=== PATIENT | female | born 1960 | race Caucasian/White ===

== ENCOUNTER 2021-02-10 08:20 | Inpatient (IN) | payer OTHER ==
[~2021-02-10] VITALS: Ht 160 cm; Wt 66.2 kg
[2021-02-10] VITALS (32 sets, daily range): BP systolic 76–144; BP diastolic 36–83
[~2021-02-10 08:20] MED LIST: ACETAMINOPHEN325 M1 PO; CIPROFLOXACIN500 M1 PO; DIOVAN; DIOVAN HCT 1601 EACH PO; FLAGYL500 MG PO; PROTONIX40 M2 PO; SINGULAIR
[2021-02-10] MEDS ORDERED: METFORMIN HCL500 M3 PO (08:29)
[2021-02-10] MEDS ORDERED: ZOFRAN ODT4 MG PO (08:30)
[2021-02-10 08:39] LABS: HEMOGLOBIN 14.7 gm/dL (12.0-15.0); MCH 29.6 pg (26.0-34.0); MCHC 34.3 g/dL (28.0-37.0); MCV 86.3 fL (80.0-100.0); MPV 8.1 fl. (7.2-11.1); NUCLEATED RBCS 0 /100WBC; PLATELET COUNT* 427 thou/uL (150-400); RBC 4.98 mil/uL (4.20-5.00); RDW-CV 13.5 % (10.5-14.5); WBC 18.5 thou/uL (4.0-11.0)
[2021-02-10 08:48] LABS: CALCIUM 9.7 mg/dL (8.5-10.1)
[2021-02-10 08:49] LABS: POTASSIUM 2.4 mmol/L (3.5-5.1)
[2021-02-10 08:53] LABS: TOTAL BILIRUBIN 0.9 mg/dL (<0.1-1.0); TOTAL PROTEIN 8.4 g/dL (6.4-8.2)
[2021-02-10 08:57] LABS: URINE BILIRUBIN NEGATIVE (Negative); URINE BLOOD TRACE (Negative); URINE CLARITY CLEAR; URINE COLOR YELLOW; URINE GLUCOSE-RANDOM 2+ (Negative); URINE LEUKOCYTES-REFLEX NEGATIVE (Negative); URINE NITRITE-REFLEX NEGATIVE (Negative); URINE PROTEIN 2+ (Negative); URINE SPECIFIC GRAVITY 1.025 (1.005-1.030); URINE UROBILINOGEN 0.2 E.U./dl (0.2-1.0)
[2021-02-10 08:58] LABS: URINE KETONES 3+ (Negative)
[2021-02-10 09:02] LABS: ABSOLUTE LYMPHOCYTES 0.6 thou/uL (0.8-5.3); ABSOLUTE MONOCYTES 0.7 thou/uL (0.0-1.2); ABSOLUTE NEUTROPHILS 17.2 thou/uL (1.6-8.1); PLATELET ESTIMATE INCREASED
[2021-02-10 09:03] LABS: SQUAMOUS >10 Many /LPF (0-3)
[2021-02-10 09:04] LABS: MUCUS 0-3 Light strn/LPF (None Seen)
[2021-02-10 09:05] LABS: BACTERIA-REFLEX None Seen /HPF (None Seen); CASTS None Seen /LPF (None Seen); CRYSTALS None Seen /LPF (None Seen); URINE RBC 0-2 Rare /HPF (0-2); URINE WBC-REFLEX 0-5 Rare /HPF (0-5)
[2021-02-10 09:15] LABS: APTT 26.2 Seconds (25.0-31.3); INR 1.1; PROTIME 11.9 Seconds (9.20-11.50)
--- NOTE | 2021-02-10 11:53 | CARD ---
[address] [address] CARDIAC CATH REPORT Name: GORDON MALONEY Room: [address] M.R.#: [id number] Admission: 02/10/21 Attend Phys: Mik Merida MD, Discharge: Date of : 58 Report #: [id number] THIS REPORT FOR: cc: Román Harley Bruce R. DO ~ Mik Merida MD [facility] APPROVED REPORT Study performed: 02/10/2021 09:33:54 Patient Details Patient Status: ED Room #: The patient is a 60 year-old female Event Personnel Mik Merida Senior Portfolio Manager, Samantha Younger RN, Joby Neely ESTIMATOR LUMBER Scrub, Karly Gomes RTR Monitor, Chente Diehl Screen Printing Supervisor Procedures Performed Art Access - R femoral artery Left Heart Cath w/or w/o Coronaries MYCHAL Revasc AMI Total/Sub Single RCA Hemostasis w/ Angioseal Indication STEMI Risk Factors Hypercholesterolemia, Diabetes Admission/Lab Medications/Medications given during procedure Lidocaine Subcut 14 ml, Oxygen Nasal cannula 2 l per min, 0.9% Sodium Chloride IV 75 ml per hr, Fentanyl IV 25 mcg, Midazolam (Versed) IV 1 mg, Angiomax IV 10.5 ml, Angiomax Drip IV 23.22 ml per hr, Effient PO 60 mg Procedure Narrative The patient was brought emergently to the Cardiac Catheterization Laboratory and was prepped and draped in a sterile manner. The right femoral was infiltrated with 2% Lidocaine subcutaneous anesthesia. IV conscious sedation was used throughout procedure with appropriate monitoring and was performed in the presence of a registered nurse who was an independent [place] [address] CARDIAC CATH REPORT Name: GORDON MALONEY Room: [address]#: [id number] Admission: 02/10/21 Attend Phys: Mik Merida MD, Discharge: Date of : 58 Report #: [id number] performing the procedure. A [place] 6 FR sheath was inserted into the right femoral artery. Coronary angiography was performed using coronary diagnostic catheters. The right coronary system was accessed and visualized with a Diagnostic 6 Fr JR 4 catheter. The left coronary system was accessed and visualized with a Diagnostic 6 Fr JL 4 catheter. The left ventricle was accessed and visualized with a Diagnostic 6 Fr Pigtail catheter. Left ventricular/Aortic Valve gradient assessed via catheter pullback. Left ventriculogram was performed in WANG projection. Pre-demployment femoral angiogram was performed . Closure device was deployed with a Fr Angioseal STS 6Fr. The patient tolerated the procedure well and there were no complications associated with the procedure. There was no hematoma. Intraoperative Conscious Sedation Sedation start time: 09:53 Case end Time: 10:25 Fentanyl 25 mcg Versed 1 mg Fluoro Time: 13.0 minutes Dose: DAP 81948 cGycm2 1441 mGy Contrast Type and Amount: Visipaque 225 ml Diagnostic Cath Left Main 0% narrowing LAD Tandem 40 and 80% mid LAD stenoses Circumflex 30% proximal narrowing Right Coronary Large dominant vessel with 40% proximal narrowing with 95% distal stenosis with prominent intraluminal thrombus associated with the distal stenosis Left Ventriculography The left ventricle is normal in size with normal contractility. The left ventricular ejection fraction is estimated to be 60%. Left ventricular wall motion abnormalities are present. There is no mitral insufficiency. Mild inferobasilar hypokinesis is noted Hemodynamics The aortic pressure is 141/78 mmHg with a mean of 86 mmHg. The left ventricular pressure is 144/8 mmHg with a mean of mmHg. The left ventricular end diastolic pressure is 25 mmHg. There was no gradient across the aortic valve upon pullback[place] [address] CARDIAC CATH REPORT Name: GORDON MALONEY Room: [address]#: [id number] Admission: 02/10/21 Attend Phys: Mik Merida MD, Discharge: Date of : 58 Report #: [id number] Anticoagulation was achieved with Angiomax Drip. Patient was preloaded with Angiomax IV 10.5 ml. Percutaneous coronary intervention was performed on the distal right coronary artery. The lesion stenosis prior to intervention was 95% with KARELY flow. A 6F JR 4.0 Guide Catheter was used to engage the right ostium. A IG: BMW 190cm Interventional Guidewire was used to cross the lesion. BALLOON DILATION A Balloon catheter Mini Trek RX 2.0 X 12 was inserted and inflated up to 8.00atm for 7seconds. Additional Inflation: 8.00atm for 7seconds. A balloon catheter EA Trek RX 3.0 x 12 was inserted and inflated up to 12 HERMELINDA for 13 seconds and 16 HERMELINDA for 9 seconds. STENT DEPLOYMENT A drug-eluting stent [place] RX Stent 3.5X15mm was inserted and inflated up to 12.00atm for 10seconds. Additional Inflation: 18.00atm for 9seconds. Additional Inflation: 21.00atm for 9seconds. Final angiography reveals 0 % stenosis with KARELY 3 flow. COMMENTS There was no residual thrombus noted post stent deployment in the distal right coronary artery. Conclusion 1. Acute inferior wall ST segment elevation myocardial infarction 2. Significant coronary artery disease characterized by the following: A 40% proximal with 95% distal right coronary stenosis with prominent thrombus associated with the distal lesion B tandem 40 and 80% mid LAD stenoses C 30% narrowing in the proximal portion of the nondominant circumflex 2. Moderately severe elevation of left ventricular end-diastolic pressure at rest 3. Normal global left ventricular systolic function, estimated ejection fraction being 60% with subtle [place] [address] CARDIAC CATH REPORT Name: GORDON MALONEY Room: [address]#: [id number] Admission: 02/10/21 Attend Phys: Mik Merida MD, Discharge: Date of : 58 Report #: [id number] noted 4. Successful PCI with deployment of a drug-eluting stent at the site of 95% distal right coronary stenosis with 0% residual narrowing status post stent deployment with KARELY-3 flow to the distal vessel and no residual thrombus. Recommendations Cardiac Risk Reduction Program Aggressive Medical Therapy Medications Administered Prasugrel Diagnostic Cath Approved by: Chente Diehl MD Date/Time: 02/10/2021 11:50:55 <ELECTRONICALLY SIGNED> By: Mik Merida MD, FAC 02/10/21 1153 115 1153Mik Merida MD, FACC /INF
[2021-02-10 15:24] LABS: CALCIUM 9.9 mg/dL (8.5-10.1); CK-MB MASS 28.8 ng/mL (<0.5-3.6); CREATININE 0.8 mg/dL (0.6-1.3); PHOSPHORUS* 2.6 mg/dL (2.5-4.9)
[2021-02-10 15:28] LABS: POTASSIUM 2.3 mmol/L (3.5-5.1)
[2021-02-10 15:29] LABS: TROPONIN-I LEVEL 14.03 ng/mL (<0.06)
[2021-02-11] VITALS (19 sets, daily range): BP systolic 91–137; BP diastolic 57–94
[2021-02-11 01:24] LABS: HEMATOCRIT 38.7 % (37.0-47.0); HEMOGLOBIN 13.2 gm/dL (12.0-15.0); MCH 29.9 pg (26.0-34.0); MCHC 34.2 g/dL (28.0-37.0); MCV 87.6 fL (80.0-100.0); MPV 8.1 fl. (7.2-11.1); RBC 4.42 mil/uL (4.20-5.00); RDW-CV 13.1 % (10.5-14.5); WBC 14.7 thou/uL (4.0-11.0)
[2021-02-11 01:43] LABS: ALBUMIN 3.2 g/dL (3.4-5.0); ALKALINE PHOSPHATASE 95 U/L (46-116); ANION GAP 9 mmol/L (7-16); BUN 11 mg/dL (7-18); CALCIUM 9.2 mg/dL (8.5-10.1); CHLORIDE 105 mmol/L (98-107); CHOLESTEROL 191 mg/dL (<200); CK-MB MASS 11.1 ng/mL (<0.5-3.6); CO2 28 mmol/L (21-32); CREATININE 0.6 mg/dL (0.6-1.3); GLUCOSE 146 mg/dL (70-99); HDL CHOLESTEROL 28 mg/dL (>40); LDL CHOLESTEROL 129 mg/dL (<100); POTASSIUM 3.1 mmol/L (3.5-5.1); SGOT 75 U/L (15-37); SGPT 11 U/L (30-65); SODIUM 142 mmol/L (136-145); TC:HDL 6.8 Ratio (Not establshd); TOTAL BILIRUBIN 0.7 mg/dL (<0.1-1.0); TOTAL PROTEIN 6.9 g/dL (6.4-8.2); TRIGLYCERIDE 173 mg/dL (<150); VLDL 35 mg/dL (<40)
[2021-02-11 01:56] LABS: SERUM ASSESSMENT Clear; TROPONIN-I LEVEL 16.64 ng/mL (<0.06)
--- NOTE | 2021-02-11 10:38 | CON ---
[facility] [address] [facility] [address] CONSULTATION Name: GORDON MALONEY Room: [address] ADM IN M.R.#: [id number] Admission: 02/10/21 Attend Phys: Aleah Rogers Discharge: Date of : 58 Report #: [id number] THIS REPORT FOR: cc: Román Harley Bruce R. DO ~ Chente Diehl MD [facility] CONSULTATION INDICATION: ST-elevation myocardial infarction. HISTORY OF PRESENT ILLNESS: The patient is a 60-year-old white female who presented to the Emergency Room initially with complaints of abdominal pain, nausea and vomiting. The patient had some abdominal tenderness, but no rebound. She reports having recent lumbar fusion. She states she has had nausea and vomiting for the past 3 days. During her stay initially, she denied chest pain. She did report a little later that she was having some shoulder pain. EKG at that time showed ST elevation in the inferior leads. Initial troponin is 6. The patient is having intermittent shoulder pain. She reports this retrospectively off and on as well. PAST MEDICAL HISTORY: 1. Type 2 diabetes mellitus. 2. Hypertension. 3. Hyperlipidemia. 4. History of laminectomy. 5. Back fusion. 6. Tonsillectomy. 7. . CURRENT MEDICATIONS: Metformin one tablet b.i.d., Tylenol p.r.n., Zofran p.r.n. ALLERGIES: None documented. SOCIAL HISTORY: The patient is . She does not drink alcohol. She does not smoke. Her is here in attendance with her. REVIEW OF SYSTEMS: A 14-point review of systems as per HPI, otherwise unremarkable. PHYSICAL EXAMINATION: VITAL SIGNS: Stable. Blood pressure 134/73, pulse is 98 and regular. GENERAL: This is an elderly female, in no distress. Mood and affect appropriate. HEENT: Extraocular muscles intact. Mucous membranes are moist. NECK: Shows no jugular venous distention. [place] [address] CONSULTATION Name: GORDON MALONEY Room: [address] IN [facility].#: [id number] Admission: 02/10/21 Attend Phys: Aleah Rogers Discharge: Date of : 58 Report #: [id number] CHEST: Reveals clear lung baron without wheezes, rales or rhonchi. CARDIOVASCULAR: Reveals regular rhythm with normal S1, S2. I do not appreciate gallop or murmur. ABDOMEN: Reveals some mild tenderness with positive bowel sounds. EXTREMITIES: Shows no edema. SKIN: Dry. LABORATORY DATA: Labs are reviewed. Sodium 140, potassium 2.4, chloride 99, bicarbonate 27, BUN 14, creatinine 1.0. Serum glucose 287. AST 79. Amylase 35, lipase 77. Total bilirubin 0.9, direct bilirubin 0.1, calcium 9.7, magnesium 1.7, alkaline phosphatase 119, ALT 25, total protein 8.4, albumin 4.0, EGFR 56. Troponin 10.05. Coags within normal limits. White blood cell count 18.5, hemoglobin 14.7, platelet count 427,000. Chest x-ray shows no acute process. IMPRESSION AND RECOMMENDATIONS: 1. Acute inferior wall ST-elevation myocardial infarction based on EKG. We will proceed to catheterization lab for intervention/angiography. 2. Hypertension. Blood pressure adequately controlled at present. We will adjust medications as needed. 3. Probable dyslipidemia. We will recommend a statin agent. 4. Diabetes per hospitalist. 5. Hypokalemia. We will correct. <ELECTRONICALLY SIGNED> By: Chente Diehl MD, FACC 02/11/21 1038 0946 1002[facility] Jessica Diehl MD, FACC /nt
[2021-02-11 12:32] LABS: CK-MB MASS 4.3 ng/mL (<0.5-3.6)
[2021-02-11 12:33] LABS: TROPONIN-I LEVEL 8.78 ng/mL (<0.06)
--- NOTE | 2021-02-11 13:55 | EKG ---
[place] [address] ELECTROCARDIOGRAM REPORT Name: GORDON MALONEY Room: [address] ADM IN M.R.#: [id number] Admission: 02/10/21 Attend Phys: Jose Lombardo Discharge: Date of : 58 Date of Service: 02/11/21 0517 Report #: [id number] THIS REPORT FOR: //name// [facility] Test Date: 2021-02-11 Test Time: 05:17:20 Pat Name: GORDON MALONEY Department: Room: [facility] Gender: F Director Of Rehabilitation And Wellness: CHRISTINE : 1960 Requested By: Mik Merida Order Number: [id number] Reading MD: Chente Diehl Measurements Intervals [place] Rate: 90 P: 52 KS: 142 QRS: 51 QRSD: 92 T: -29 QT: 393 QTc: 481 Interpretive Statements Sinus rhythm Borderline repolarization abnormality Minimal ST elevation, inferior leads Baseline wander in lead(s) II,III,aVF No previous ECG available for comparison Electronically Signed On 02-11-2021 13:55:21 CDT by Chente Diehl [email or web address] <ELECTRONICALLY SIGNED> By: Chente Diehl MD, FACC 02/11/21 1355 0517 0517 Chente Diehl MD, [facility] /EPI
[2021-02-12 00:36] VITALS: BP 102/63
[2021-02-12 03:05] LABS: GLYCOHEMOGLOBIN (HGB A1C) 7.2 % (4.8-5.6)
[2021-02-12 04:17] VITALS: BP 107/65
[2021-02-12 05:52] LABS: TROPONIN-I LEVEL 6.87 ng/mL (<0.06)
[2021-02-12] MEDS ORDERED: NITROGLYCERIN0.4 MG SUBLING ×2 (09:23→10:27)
[2021-02-12] MEDS ORDERED: COZAAR 50 MG TA50 M1 PO ×2 (09:23→10:27)
[2021-02-12] MEDS ORDERED: EFFIENT10 MG PO ×2 (09:23→10:26)
[2021-02-12] MEDS ORDERED: HYDROCHLOROTHIA25 M1 PO ×2 (09:23→10:27)
[2021-02-12] MEDS ORDERED: METOPROLOL TART25 MG PO ×2 (09:23→10:27)
[2021-02-12] MEDS ORDERED: LIPITOR40 MG PO ×2 (09:23→10:27)
[2021-02-12] MEDS ORDERED: BAYER CHEWABLE81 MG PO (09:23)
[2021-02-12] MEDS ORDERED: FENOFIBRATE160 MG PO ×2 (09:23→10:27)
--- NOTE | 2021-02-12 09:35 | EKG ---
[place] [address] ELECTROCARDIOGRAM REPORT Name: MET HAIDERSHOSHANA Selwyn Room: [address] ADM IN .R.#: [id number] Admission: 02/10/21 Attend Phys: Jose Lombardo Discharge: Date of : 58 Date of Service: 02/10/2140 Report #: [id number] THIS REPORT FOR: //name// [facility] ED Test Date: 2021-02-10 Test Time: 08:40:08 Pat Name: GORDON MALONEY Department: Room: [facility] Gender: F Exterminator Helper Termite: CCD : 1960 Requested By: Severiano Bell Order Number: [id number] MD: Nathaniel Lopez Measurements Intervals [place] Rate: 92 P: 60 UT: 149 QRS: 36 QRSD: 92 T: 49 QT: 403 QTc: 499 Interpretive Statements Sinus rhythm Inferoposterior infarct, recent No previous ECG available for comparison Electronically Signed On 02-12-2021 9:35:36 CDT by Nathaniel Lopez [email or web address] <ELECTRONICALLY SIGNED> By: Nathaniel Lopez MD, [facility] 02/12/21 0935 9 9 Nathaniel Lopez MD, [facility] /EPI
[2021-02-12 11:39] VITALS: BP 127/81
--- NOTE | 2021-02-12 12:21 | EKG ---
[place] [address] ELECTROCARDIOGRAM REPORT Name: GORDON MALONEY Room: [address] ADM IN .R.#: [id number] Admission: 02/10/21 Attend Phys: Jose Lombardo Discharge: Date of : 58 Date of Service: 02/10/21 1507 Report #: [id number] THIS REPORT FOR: //name// [facility] Test Date: 2021-02-10 Test Time: 15:07:43 Pat Name: GORDON MALONEY Department: Room: [facility] Gender: F Chaser Helper: HELENA : 1960 Requested By: Mik Merida Order Number: [id number] Lionel MD: Nathaniel Lopez Measurements Intervals [place] Rate: 102 P: 55 MT: 152 QRS: 54 QRSD: 87 T: -8 QT: 355 QTc: 463 Interpretive Statements Sinus tachycardia Probable left atrial enlargement Probable inferior infarct, recent Compared to ECG 02/10/2021 08:40:08 Sinus rhythm no longer present Myocardial infarct finding still present Electronically Signed On 02-12-2021 12:21:11 CDT by Nathaniel Lopez [email or web address] <ELECTRONICALLY SIGNED> By: Nathaniel Lopez MD, FAC 02/12/21 1221 1507 1507 Nathaniel Lopez MD, [facility] /EPI
[2021-02-12 14:24] VITALS: BP 127/81
--- NOTE | 2021-02-12 17:00 | 2DMMODE ---
[place] [address] 2 D/M-MODE ECHOCARDIOGRAM Name: GORDON MALONEY Room: [address] IN [facility].#: [id number] Admission: 02/10/21 Attend Phys: Jose Lombardo Discharge: 02/12/21 Date of : 58 Date of Service: 02/12/21 1700 Report #: [id number] THIS REPORT FOR: cc: Román Harley,Román Miranda,Nathaniel Pierre MD [facility] ~ APPROVED REPORT Study performed: 02/12/2021 14:20:45 EXAM: Comprehensive 2D, Doppler, and color-flow Echocardiogram Patient Location: In-Patient Room #: 223 BSA: 1.69 HR: 80 bpm BP: 127/81 mmHg Other Information Study Quality: Good Indications SC 2D Dimensions IVSd: 10.57 (7-11mm) LVOT Diam: 20.29 (18-24mm) LVDd: 45.10 mm PWd: 11.48 (7-11mm) Ascending Ao: 35.20 (22-36mm) LVDs: 21.43 (25-40mm) Aortic Root: 29.05 mm Volumes Left Atrial Volume (Systole) LA ESV Index: 20.20 mL/m2 Aortic Valve AoV Peak Zaheer.: 1.11 m/s AO Peak Gr.: 4.95 mmHg LVOT Max P.90 mmHg AO Mean Gr.: 2.95 mmHg LVOT Mean P.80 mmHg LVOT Max V: 0.99 m/s AO V2 VTI: 19.78 cm LVOT Mean V: 0.60 m/s SABRINA (VTI): 2.94 cm2 LVOT V1 VTI: 18.02 [place] [address] 2 D/M-MODE ECHOCARDIOGRAM Name: GORDON MALONEY Room: [address]R.#: [id number] Admission: 02/10/21 Attend Phys: Jose Lombardo Discharge: 02/12/21 Date of : 58 Date of Service: 02/12/21 1700 Report #: [id number] E/A Ratio: 0.83 MV Decel. Time: 192.69 ms MV E Max Zaheer.: 0.99 m/s MV PHT: 55.88 ms MVA (PHT): 3.94 cm2 TDI E/Lateral E': 11.00 E/Medial E': 16.50 Medial E' Zaheer.: 0.06 m/s Lateral E' Zaheer.: 0.09 m/s Pulmonary Valve PV Peak Zaheer.: 0.91 m/s PV Peak Gr.: 3.33 mmHg Left Ventricle The left ventricle is normal size. There is normal LV segmental wall motion. There is normal left ventricular wall thickness. Left ventricular systolic function is normal. The left ventricular ejection fraction is within the normal range. LVEF is 50-55%. Grade I - abnormal relaxation pattern. Right Ventricle The right ventricle is normal size. The right ventricular systolic function is normal. Atria The left atrium size is normal. The right atrium size is normal. Aortic Valve The aortic valve is normal in structure. Mild aortic regurgitation. There is no aortic valvular stenosis. Mitral Valve Mild mitral annular calcification. moderate mitral regurgitation. No evidence of mitral valve stenosis. Tricuspid Valve The tricuspid valve is normal in structure. There is trace tricuspid valve regurgitation noted. Pulmonic Valve The pulmonary valve is normal in structure. There is no pulmonic valvular regurgitation. [place] [address] 2 D/M-MODE ECHOCARDIOGRAM Name: MALONEYMETSHOSHANA Samano Room: [address]#: [id number] Admission: 02/10/21 Attend Phys: Jose Lombardo Discharge: 02/12/21 Date of : 58 Date of Service: 02/12/21 1700 Report #: [id number] The aortic root is normal in size. IVC is normal in size and collapses >50% with inspiration. Pericardium There is no pericardial effusion. <Conclusion> LVEF is 50-55%. Mild aortic regurgitation. moderate mitral regurgitation. <ELECTRONICALLY SIGNED> By: Nathaniel Lopez MD, FACC 02/12/211699 99 99 Nathaniel Lopez MD, FACC /INF
== END 2021-02-12 16:13 | disposition home or self-care (01) | DRG 246 ==
LOC: M.ERS 08:20 → M.CL 09:36 → M.TBA-CV 09:36 → M.ERS 09:36 → M.2W 11:21 → M.ICU 11:21 → M.TBA-ER 11:21 → M.ICU 12:29 → M.2W 02-11 18:39
PROVIDERS: Emergency Medicine Emergency Medical Services; Internal Medicine; Internal Medicine Cardiovascular Disease; ADMIT Internal Medicine; ATTEND Internal Medicine
PROC: 027034Z Dilation of Coronary Artery, One Artery with Drug-eluting Intraluminal Device, Percutaneous Approach (ICD-10-PCS; principal; 2021-02-10)
PROC: B215YZZ Fluoroscopy of Left Heart using Other Contrast (ICD-10-PCS; principal; 2021-02-10)
PROC: 4A023N7 Measurement of Cardiac Sampling and Pressure, Left Heart, Percutaneous Approach (ICD-10-PCS; principal; 2021-02-10)
PROC: B211YZZ Fluoroscopy of Multiple Coronary Arteries using Other Contrast (ICD-10-PCS; principal; 2021-02-10)
DX: I21.19 ST elevation (STEMI) myocardial infarction involving other coronary artery of inferior wall (principal); I50.33 Acute on chronic diastolic (congestive) heart failure; E87.6 Hypokalemia; K59.00 Constipation, unspecified; E11.65 Type 2 diabetes mellitus with hyperglycemia; D72.829 Elevated white blood cell count, unspecified; R82.4 Acetonuria; E78.5 Hyperlipidemia, unspecified; G89.29 Other chronic pain; I25.10 Atherosclerotic heart disease of native coronary artery without angina pectoris; I11.0 Hypertensive heart disease with heart failure; M54.9 Dorsalgia, unspecified; Z20.822 Contact with and (suspected) exposure to COVID-19; Z98.891 History of uterine scar from previous surgery; Z98.1 Arthrodesis status; Z90.710 Acquired absence of both cervix and uterus; Z79.84 Long term (current) use of oral hypoglycemic drugs; Z79.899 Other long term (current) drug therapy

== ENCOUNTER 2021-02-20 10:26 | Observation (INO) | payer OTHER ==
[2021-02-20] VITALS (12 sets, daily range): BP systolic 125–152; BP diastolic 76–83
[~2021-02-20] VITALS: Ht 160 cm; Wt 64.9 kg
[~2021-02-20 10:26] MED LIST changes: +BAYER CHEWABLE81 MG PO; +COZAAR 50 MG TA50 M1 PO; +EFFIENT10 MG PO; +FENOFIBRATE160 MG PO; +HYDROCHLOROTHIA25 M1 PO; +LIPITOR40 MG PO; +METFORMIN HCL500 M3 PO; +METOPROLOL TART25 MG PO; +NITROGLYCERIN0.4 MG SUBLING; +ZOFRAN ODT4 MG PO
[2021-02-20 11:27] LABS: HEMATOCRIT 38.9 % (37.0-47.0); HEMOGLOBIN 13.1 gm/dL (12.0-15.0); MCH 29.6 pg (26.0-34.0); MCHC 33.7 g/dL (28.0-37.0); MCV 87.9 fL (80.0-100.0); MPV 8.2 fl. (7.2-11.1); RBC 4.43 mil/uL (4.20-5.00); RDW-CV 13.1 % (10.5-14.5); WBC 11.2 thou/uL (4.0-11.0)
[2021-02-20 11:35] LABS: ANION GAP 11 mmol/L (7-16); BUN 16 mg/dL (7-18); CALCIUM 9.2 mg/dL (8.5-10.1); CHLORIDE 104 mmol/L (98-107); CO2 26 mmol/L (21-32); CREATININE 0.7 mg/dL (0.6-1.3); GLUCOSE 137 mg/dL (70-99); POTASSIUM 3.2 mmol/L (3.5-5.1); SODIUM 141 mmol/L (136-145)
[2021-02-20 11:37] LABS: APTT 26.1 Seconds (25.0-31.3); INR 1.1; PROTIME 11.3 Seconds (9.20-11.50)
[2021-02-20 11:39] LABS: ALBUMIN 3.5 g/dL (3.4-5.0); ALKALINE PHOSPHATASE 85 U/L (46-116); CHOLESTEROL 115 mg/dL (<200); HDL CHOLESTEROL 31 mg/dL (>40); LDL CHOLESTEROL 59 mg/dL (<100); SGOT 12 U/L (15-37); SGPT 21 U/L (30-65); TC:HDL 3.7 Ratio (Not establshd); TOTAL BILIRUBIN 0.5 mg/dL (<0.1-1.0); TOTAL PROTEIN 7.5 g/dL (6.4-8.2); TRIGLYCERIDE 126 mg/dL (<150); VLDL 25 mg/dL (<40)
[2021-02-20 11:40] LABS: SERUM ASSESSMENT Clear
--- NOTE | 2021-02-20 14:06 | EKG ---
[place] [address] ELECTROCARDIOGRAM REPORT Name: GORDON MALONEY Room: [address] M.R.#: [id number] Admission: 02/20/21 Attend Phys: Chente Diehl, Discharge: Date of : 58 Date of Service: 02/20/21 1137 Report #: [id number] THIS REPORT FOR: //name// [facility] Test Date: 2021-02-20 Test Time: 11:37:15 Pat Name: GORDON MALONEY Department: Room: [facility] Gender: F Stock Control Supervisor: DARWIN : 1960 Requested By: Chente Diehl Order Number: [id number] Reading MD: Chente Diehl Measurements Intervals [place] Rate: 70 P: 29 CO: 155 QRS: 12 QRSD: 86 T: -15 QT: 420 QTc: 454 Interpretive Statements Sinus rhythm Borderline T abnormalities, inferior leads Compared to ECG 02/11/2021 05:17:20 T-wave abnormality now present ST (T wave) deviation no longer present Electronically Signed On 02-20-2021 14:06:49 CDT by Chente Diehl [email or web address] <ELECTRONICALLY SIGNED> By: Chente Diehl MD, FACC 02/20/21 1406 1137 1137 Chente Diehl MD, [facility] /EPI
--- NOTE | 2021-02-20 14:53 | CARD ---
[address] [address] CARDIAC CATH REPORT Name: GORDON MALONEY Room: [address] Darrell Rodriguez#: [id number] Admission: 02/20/21 Attend Phys: Chente Diehl MD Discharge: Date of : 58 Report #: [id number] THIS REPORT FOR: cc: Román Dunbar MD, Bruce D. MD Holkins, John M. MD [facility] ~ APPROVED REPORT Study performed: 02/20/2021 12:36:54 Patient Details The patient is a 60 year-old female Event Personnel Chente Diehl Roll Slicing Machine Tender, Katie Lawrence RN RN, Ra Larkin GLASS INSTALLER TECHNICIAN Monitor, Karly Gomes RTR ScrubMagnolia John Framing Specialist Procedures Performed Left heart catheterization selective coronary arteriography and PCI with deployment of a drug-eluting stent at site of 75% tubular proximalmid LAD stenosis Indication Unstable angina Risk Factors Hypercholesterolemia, Hypertension Previous Procedures/Diagnoses Previous PCI, Previous NC Admission/Lab Medications/Medications given during procedure Angiomax bolus and infusion Procedure Narrative The patient was brought electively to the Cardiac Catheterization Laboratory and was prepped and draped in a sterile manner. The right femoral was infiltrated with 2% Lidocaine subcutaneous anesthesia. A [place] 6 FR sheath was inserted into the . Coronary angiography was performed using coronary diagnostic catheters. The right coronary system was accessed and visualized with a Diagnostic - JR4 catheter. The left coronary system was accessed and visualized with a 6F XBLAD 3.5 catheter. The left ventricle was accessed and visualized with a [facility] [address] [place] [address] CARDIAC CATH REPORT Name: GORDON MALONEY Room: [address] Michael#: [id number] Admission: 02/20/21 Attend Phys: Chente Diehl MD Discharge: Date of : 58 Report #: [id number] Diagnostic - JR4 Pressures Only catheter. Left ventricular/Aortic Valve gradient assessed via catheter pullback. Pre-demployment femoral angiogram was performed . Closure device was deployed with a Fr Angioseal STS 6Fr. The patient tolerated the procedure well and there were no complications associated with the procedure. There was no hematoma. Intraoperative Conscious Sedation Sedation start time: 1254 Case end Time: 1325 Fentanyl 25 mcg Versed 1 mg Fluoro Time: 8.0 minutes Dose: DAP 84384 cGycm2 1012 mGy Contrast Type and Amount: Omnipaque 170 ml Diagnostic Cath Left Main 0% narrowing LAD 75% tubular irregular proximalmid LAD stenosis Circumflex 30% narrowing the proximal portion of this nondominant vessel Right Coronary Large dominant vessel with 40% mid vessel narrowing and a widely patent distal right coronary stent Left Ventriculography Left Ventriculography was not performed. Hemodynamics The aortic pressure is 142/72 mmHg with a mean of 66 mmHg. The left ventricular pressure is 150/-4 mmHg with a mean of mmHg. The left ventricular end diastolic pressure is 20 mmHg. There was no gradient across the aortic valve upon pullback. PCI Technique Lesion Anticoagulation was achieved with Angiomax. Patient was preloaded with Angiomax IV 10 ml. Percutaneous coronary intervention was performed on the Proximalmid left anterior descending artery segment. The lesion stenosis prior to intervention was 75% with KARELY 3 flow. A 6F XB LAD 3.5 Guide Catheter was used to engage the ostium. A IG: BMW 190cm Interventional Guidewire was used to cross the lesion. BALLOON DILATION A Balloon catheter Trek RX 2.25 X 20 was inserted and inflated up to 8.00atm for 11seconds. Additional Inflation: 8.00atm for 10seconds. [place] [address] CARDIAC CATH REPORT Name: GORDON MALONEY Room: [address] M..#: [id number] Admission: 02/20/21 Attend Phys: Chente Diehl MD Discharge: Date of : 58 Report #: [id number] Additional Inflation: 12.00atm for 9seconds. STENT DEPLOYMENT A stent [place] RX Stent 2.43M42gp was inserted and inflated up to 10.00atm for 12seconds. Additional Inflation: 11.00atm for 8seconds. POST STENT DEPLOYMENT BALLOON DILATION A Balloon catheter [place] Trek RX 2.75 X 8 was inserted and inflated up to 8.00atm for 7seconds. Additional Inflation: 14.00atm for 5seconds. Additional Inflation: 18.00atm for 13seconds. 22 HERMELINDA for 11 sec 22 HERMELINDA for 10 sec 22 HERMELINDA for 10 sec Final angiography reveals 10 % stenosis with KARELY 3 flow. Conclusion 1. Significant coronary artery disease characterized by the following: A 75% tubular irregular proximalmid LAD stenosis B 30% narrowing the proximal portion of the nondominant circumflex C large dominant right coronary artery with 40% mid vessel narrowing and a widely patent distal right coronary stent 2. Moderate elevation of left ventricular end-diastolic pressure at rest 3. Successful PCI with deployment of a drug-eluting stent at the site of 75% tubular proximalmid LAD stenosis with 10% residual narrowing and KARELY-3 flow to the distal vessel Recommendations Cardiac Risk Reduction Program Aggressive Medical Therapy Medications Administ[place] [address] CARDIAC CATH REPORT Name: GORDON MALONEY [place] [address] [id number] Admission: 02/20/21 Attend Phys: Chente Diehl MD Discharge: Date of : 58 Report #: [id number] Diagnostic Cath Approved by: Chente Diehl MD Date/Time: 02/20/2021 14:51:29 <ELECTRONICALLY SIGNED> By: Mik Merida MD, [facility] 02/20/21 1453 1453 1453Mik Merida MD, [facility] /INF
[2021-02-20] MEDS ORDERED: TIZANIDINE HCL4 M1 PO (17:49)
[2021-02-20] MEDS ORDERED: TRAMADOL 50 MG50 MG PO (17:50)
[2021-02-21] VITALS (7 sets, daily range): BP systolic 117–142; BP diastolic 76–87
[2021-02-21 04:27] LABS: HEMATOCRIT 36.8 % (37.0-47.0); HEMOGLOBIN 12.8 gm/dL (12.0-15.0); MCH 30.3 pg (26.0-34.0); MCHC 34.8 g/dL (28.0-37.0); MCV 87.1 fL (80.0-100.0); MPV 8.4 fl. (7.2-11.1); RBC 4.22 mil/uL (4.20-5.00); WBC 10.9 thou/uL (4.0-11.0)
[2021-02-21 04:50] LABS: ALBUMIN 3.3 g/dL (3.4-5.0); CALCIUM 8.8 mg/dL (8.5-10.1); CREATININE 0.6 mg/dL (0.6-1.3); TOTAL BILIRUBIN 0.5 mg/dL (<0.1-1.0)
--- NOTE | 2021-02-21 09:27 | EKG ---
[place] [address] ELECTROCARDIOGRAM REPORT Name: GORDON MALONEY Room: [address]R.#: [id number] Admission: 02/20/21 Attend Phys: Chente Diehl, Discharge: Date of : 58 Date of Service: 02/20/21 1427 Report #: [id number] THIS REPORT FOR: //name// [facility] Test Date: 2021-02-20 Test Time: 14:27:41 Pat Name: GORDON MALONEY Department: Room: [facility] Gender: F Choirmaster: DARWIN : 1960 Requested By: Chente Diehl Order Number: [id number] Reading MD: Hood Arellano Measurements Intervals [place] Rate: 83 P: 43 MT: 147 QRS: 11 QRSD: 85 T: -3 QT: 399 QTc: 469 Interpretive Statements Sinus rhythm Ventricular premature complex Inferior infarct, old Compared to ECG 02/20/2021 11:37:15 Ventricular premature complex(es) now present Myocardial infarct finding now present T-wave abnormality no longer present Electronically Signed On 02-21-2021 9:27:10 CDT by Hood Arellano [email or web address] <ELECTRONICALLY SIGNED> By: Obei Arellano MD, [facility] 02/21/21 0927 1427 142 Obie Arellano MD, [facility] /EPI
--- NOTE | 2021-02-21 09:28 | EKG ---
[place] [address] ELECTROCARDIOGRAM REPORT Name: MET HAIDERSHOSHANA Selwyn Room: [address] M.R.#: [id number] Admission: 02/20/21 Attend Phys: Chente Diehl, Discharge: Date of : 58 Date of Service: 02/20/21 1703 Report #: [id number] THIS REPORT FOR: //name// [facility] Test Date: 2021-02-20 Test Time: 17:03:39 Pat Name: GORDON MALONEY Department: Room: [address] Gender: F Director Validation: BENITO : 1960 Requested By: Chente Diehl Order Number: [id number] Reading MD: Hood Arellano Measurements Intervals [place] Rate: 90 P: 42 HI: 146 QRS: 12 QRSD: 79 T: -24 QT: 395 QTc: 484 Interpretive Statements Sinus rhythm Inferior infarct, age indeterminate Baseline wander in lead(s) V1,V2 Compared to ECG 02/20/2021 14:27:41 Ventricular premature complex(es) no longer present Myocardial infarct finding still present Electronically Signed On 02-21-2021 9:28:14 CDT by Hood Arellano [email or web address] <ELECTRONICALLY SIGNED> By: Obie Arellano MD, [facility] 02/21/21 0928 170 170 Obie Arellano MD, [facility] /EPI
--- NOTE | 2021-02-21 09:32 | EKG ---
[place] [address] ELECTROCARDIOGRAM REPORT Name: GORDON MALONEY Room: [address] M.R.#: [id number] Admission: 02/20/21 Attend Phys: Chente Diehl, Discharge: Date of : 58 Date of Service: 02/21/21822 Report #: [id number] THIS REPORT FOR: //name// [facility] Test Date: 2021-02-21 Test Time: 08:23:47 Pat Name: GORDON MALONEY Department: Room: [address] Gender: F Molder Operator: : 1960 Requested By: Chente Diehl Order Number: [id number] Reading MD: Hood Arellano Measurements Intervals [place] Rate: 68 P: 61 NV: 162 QRS: 22 QRSD: 98 T: 42 QT: 415 QTc: 442 Interpretive Statements Sinus rhythm Abnormal inferior Q waves Compared to ECG 02/20/2021 17:03:39 Inferior Q waves now present Q waves now present Myocardial infarct finding no longer present Electronically Signed On 02-21-2021 9:32:33 CDT by Hood Arellano [email or web address] <ELECTRONICALLY SIGNED> By: Obie Arellano MD, [facility] 02/21/2132 2 2 Obie Arellano MD, [facility] /EPI
--- NOTE | 2021-02-21 10:08 | EKG ---
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 : 1960 Requested By: Chente Diehl Order Number: [id number] Reading MD: Hood Arellano Measurements Intervals [place] Rate: 75 P: 16 ID: 152 QRS: -2 QRSD: 89 T: -16 QT: 415 QTc: 464 Interpretive Statements Sinus rhythm Inferior infarct, age indeterminate Compared to ECG 02/20/2021 17:03:39 No significant changes Electronically Signed On 02-21-2021 10:08:03 CDT by Hood Arellano [email or web address] <ELECTRONICALLY SIGNED> By: Obie Arellano MD, [facility] 02/21/21 1008 2333 2333 Obie Arellano MD, [facility] /EPI
--- NOTE | 2021-02-22 13:56 | D ---
[facility] [address] [place] [address] DISCHARGE SUMMARY Name: GORDON MALONEY Room: [address] Darrell Rodriguez#: [id number] Admission: 02/20/21 Attend Phys: Chente Diehl MD Discharge: 02/21/21 Date of : 58 Report #: [id number] THIS REPORT FOR: cc: Román Dunbar MD, Bruce D. MD Liston, Michael J. MD [facility] ~ DATE OF SERVICE: 02/21/2021 DISCHARGE DIAGNOSES: 1. Coronary artery disease. 2. Unstable angina. 3. Hypertension. 4. Hyperlipidemia. 5. Type 2 diabetes mellitus. PROCEDURES DURING THE HOSPITALIZATION: 1. Coronary angiography. 2. Left heart catheterization. 3. Percutaneous coronary intervention to the left anterior descending coronary artery. HOSPITAL COURSE: The patient was brought to the hospital for staged percutaneous coronary intervention to the left anterior descending coronary artery. The patient underwent drug-eluting stent placement to the proximal to mid left anterior descending coronary artery with a single drug-eluting stent. The patient tolerated the procedure well without complication. The patient is being discharged uneventfully. DISCHARGE MEDICATIONS: Hydrochlorothiazide 25 mg p.o. every day, losartan 50 mg p.o. every day, fenofibrate 160 mg p.o. daily, Effient 10 mg p.o. daily, metoprolol tartrate 25 mg p.o. b.i.d., atorvastatin 40 mg at bedtime, tizanidine 4 mg t.i.d. p.r.n., tramadol 50 mg q.4 hours p.r.n., Zofran 4 mg q.8 hours p.r.n., Tylenol p.r.n., Nitrostat 0.4 mg sublingual p.r.n., aspirin 81 mg daily. DISPOSITION: The patient is to follow up with Cardiology Clinic in 2 weeks. <ELECTRONICALLY SIGNED> By: Chente Diehl MD, [facility] 02/22/21 1356 0944 [id number] Hospital[facility] Diehl MD, FAC /nt
== END 2021-02-21 11:40 | disposition home or self-care (01) ==
LOC: M.CL 10:26 → M.TBA-CV 12:39 → M.2W 16:46
PROVIDERS: ADMIT Internal Medicine Cardiovascular Disease; ATTEND Internal Medicine Cardiovascular Disease
DX: I25.110 Atherosclerotic heart disease of native coronary artery with unstable angina pectoris (principal); Z20.822 Contact with and (suspected) exposure to COVID-19; I10 Essential (primary) hypertension; E11.9 Type 2 diabetes mellitus without complications; E78.5 Hyperlipidemia, unspecified; Z79.899 Other long term (current) drug therapy

== ENCOUNTER 2021-04-06 01:29 | Observation (INO) | payer OTHER ==
[~2021-04-06] VITALS: Ht 157.5 cm; Wt 65.3 kg
[~2021-04-06 01:29] MED LIST changes: +TIZANIDINE HCL4 M1 PO; +TRAMADOL 50 MG50 MG PO
[2021-04-06 01:33] VITALS: BP 168/80
[2021-04-06 01:48] LABS: URINE BILIRUBIN NEGATIVE (Negative); URINE BLOOD NEGATIVE (Negative); URINE CLARITY CLEAR; URINE COLOR YELLOW; URINE GLUCOSE-RANDOM NEGATIVE (Negative); URINE KETONES NEGATIVE (Negative); URINE LEUKOCYTES-REFLEX 1+ (Negative); URINE NITRITE-REFLEX NEGATIVE (Negative); URINE PROTEIN NEGATIVE (Negative); URINE SPECIFIC GRAVITY 1.025 (1.005-1.030); URINE UROBILINOGEN 0.2 E.U./dl (0.2-1.0)
[2021-04-06 01:49] LABS: ABSOLUTE BASOPHILS 0.1 thou/uL (0.0-0.2); ABSOLUTE EOSINOPHILS 0.2 thou/uL (0.0-0.7); ABSOLUTE LYMPHOCYTES 3.3 thou/uL (0.8-5.3); ABSOLUTE MONOCYTES 0.9 thou/uL (0.0-1.2); BASOPHILS 0.5 %; EOSINOPHILS 1.5 %; HEMATOCRIT 41.1 % (37.0-47.0); HEMOGLOBIN 13.9 gm/dL (12.0-15.0); LYMPHOCYTES 22.6 %; MCHC 33.7 g/dL (28.0-37.0); MCV 88.9 fL (80.0-100.0); MONOCYTES 6.2 %; MPV 8.2 fl. (7.2-11.1); NUCLEATED RBCS 0 /100WBC; PLATELET COUNT* 382 thou/uL (150-400); POLYS 69.2 %; RBC 4.62 mil/uL (4.20-5.00); RDW-CV 13.7 % (10.5-14.5); WBC 14.5 thou/uL (4.0-11.0)
[2021-04-06 01:57] LABS: BACTERIA-REFLEX >30 Many /HPF (None Seen); CASTS None Seen /LPF (None Seen); MUCUS >6 Heavy strn/LPF (None Seen); SQUAMOUS >10 Many /LPF (0-3); TRANSITIONAL EPITHEL CELL 0-3 Few /LPF (None Seen); URINE RBC 3-10 Few /HPF (0-2); URINE WBC-REFLEX 0-5 Rare /HPF (0-5)
[2021-04-06 01:58] LABS: CRYSTALS None Seen /LPF (None Seen)
[2021-04-06 01:58] LABS: CALCIUM 9.4 mg/dL (8.5-10.1); CREATININE 0.8 mg/dL (0.6-1.3); POTASSIUM 3.2 mmol/L (3.5-5.1)
[2021-04-06 02:00] LABS: PROTIME 10.5 Seconds (9.20-11.50)
[2021-04-06 02:08] LABS: ALBUMIN 4.4 g/dL (3.4-5.0); MAGNESIUM 1.5 mg/dL (1.8-2.4); TOTAL BILIRUBIN 0.5 mg/dL (<0.1-1.0); TOTAL PROTEIN 8.3 g/dL (6.4-8.2)
[2021-04-06 03:24] VITALS: BP 137/78
[2021-04-06 05:17] LABS: CALCIUM 8.8 mg/dL (8.5-10.1); CREATININE 0.6 mg/dL (0.6-1.3); MAGNESIUM 2.2 mg/dL (1.8-2.4); POTASSIUM 3.5 mmol/L (3.5-5.1)
[2021-04-06 07:34] VITALS: BP 123/72
--- NOTE | 2021-04-06 09:39 | EKG ---
[place] [address] ELECTROCARDIOGRAM REPORT Name: MET HAIDERSHOSHANA Selwyn Room: [address]R.#: [id number] Admission: 04/06/21 Attend Phys: Bianca Chiang, Discharge: Date of : 58 Date of Service: 04/06/21 0132 Report #: [id number] THIS REPORT FOR: //name// [facility] ED Test Date: 2021-04-06 Test Time: 01:32:47 Pat Name: GORDON MALONEY Department: Room: [facility] Gender: F Residential Electrician: ANNETTA : 1960 Requested By: Adele Musa Order Number: [id number] MD: Nathaniel Lopez Measurements Intervals [place] Rate: 80 P: 42 WI: 155 QRS: 43 QRSD: 94 T: -14 QT: 408 QTc: 471 Interpretive Statements Sinus rhythm Probable inferior infarct, age indeterminate Compared to ECG 02/21/2021 08:23:47 no change Electronically Signed On 04-06-2021 9:38:49 CDT by Nathaniel Lopez [email or web address] <ELECTRONICALLY SIGNED> By: Nathaniel Lopez MD, [facility] 04/06/21 0938 013 013 Nathaniel Lopez MD, [facility] /EPI
[2021-04-06 11:52] VITALS: BP 140/72
[2021-04-06] MEDS ORDERED: CEFDINIR300 MG PO (14:45)
--- NOTE | 2021-04-06 14:56 | EXE ---
[place] [address] STRESS ECHOCARDIOGRAM Name: GORDON MALONEY Room: [address] MMaria LuisaRMaria Luisa#: [id number] Admission: 04/06/21 Attend Phys: Bianca Chiang, Discharge: Date of : 58 Date of Service: 04/06/21 1456 Report #: [id number] THIS REPORT FOR: cc: Román Dunbar MD, Bruce D. MD Blick, David R. MD [facility] ~ APPROVED REPORT Study performed: 04/06/2021 13:26:34 Exam: Stress Echocardiogram Indication: CAD s/p PCI, Chest pain Patient Location: In-Patient Stress Nurse: Kirstin Sheldon RN Room #: [facility] Supervising Physician: Nathaniel Lopez MD Status: routine Ht: 5 ft 3 in HR: 76 bpm BP: 150/85 mmHg Medical History Medical History: CAD s/p [place] Medications: Losartan, Metoprolol, Lipitor, , Effient Allergies: No known drug allergies Previous Cardiac Procedures: PCI Procedure The patient underwent an Exercise Stress Test using the Román Protocol. Blood pressure, heart rate, and EKG were monitored. An Echocardiogram was performed by nuclear engineering technician in four stages in quad fashion. At peak stress, four selected images were obtained and placed side by side with resting images for comparison. Stress Test Details Stress Test: Exercise stress testing was performed using a Román protocol. HR Resting HR: 76 bpm Max Heart Rate (APMHR): 159 bpm Max HR Achieved: 145 bpm Target HR (85% APMHR): 135 bpm % of APMHR: 91 Recovery HR: 90 bpm HR response to stress: Normal [place] [address] STRESS ECHOCARDIOGRAM Name: GORDON MALONEY Room: [address]#: [id number] Admission: 04/06/21 Attend Phys: Bianca Chiang, Discharge: Date of : 58 Date of Service: 04/06/21 1456 Report #: [id number] Resting BP: 150/85 mmHg Max BP: 170/89 mmHg Recovery BP: 160/89 mmHg BP response to stress: Normal blood pressure response to stress. ECG Resting ECG: Sinus Rhythm, nonspecific ST-T abnormalities Stress ECG: Sinus Rhythm, nonspecific ST-T abnormalities ST Change: None Maximum ST Deviation: 0 mm Arrhythmia: None Recovery ECG: Sinus Rhythm, nonspecific ST-T abnormalities Recovery ST Change: None Recovery ST Deviation: 0 mm Recovery Arrhythmia: None Clinical Reason for Termination: back pain, hx of back surgery, fatigue Exercise duration: 5 min sec Highest Stage Achieved: Stage 2: 2.5 mph at 12% grade. Exercise capacity: 7.02 METs Pre-Stress Echo The resting Echocardiogram showed abnormal left ventricular contractility with an estimated Ejection Fraction of about 50-55%. The resting Echocardiogram demonstrated wall motion abnormality in the basal inferior wall. Post-Stress Echo The stress Echocardiogram showed normal left ventricular contractility with an estimated Ejection Fraction of about 60-65%. Compared to rest, there were no stress-induced wall motion abnormalities. Conclusion Clinical Response: Non-ischemic Exercise Capacity: Below Average Stress ECG Response: Indeterminant Stress Echo Images: Non-ischemic low risk stress echo for predicting future cardiac events [place] [address] STRESS ECHOCARDIOGRAM Name: GORDON MALONEY Room: [address]#: [id number] Admission: 04/06/21 Attend Phys: Bianca Chiang, Discharge: Date of : 58 Date of Service: 04/06/211455 Report #: [id number] Study Quality: Good <Conclusion> low risk stress echo for predicting future cardiac events <ELECTRONICALLY SIGNED> By: Nathaniel Lopez MD, FACC 04/06/211455 55 55 Nathaniel Lopez MD, FACC /INF
[2021-04-06 16:33] VITALS: BP 140/72
[2021-04-06 16:49] VITALS: BP 140/72
--- NOTE | 2021-04-09 12:46 | CON ---
[address] [address] CONSULTATION Name: GORDON MALONEY Room: [address] Darrell Rodriguez#: [id number] Admission: 04/06/21 Attend Phys: Bianca Chiang MD Discharge: 04/06/21 Date of : 58 Report #: [id number] THIS REPORT FOR: cc: Romná Dunbar MD, Bruce D. MD Blick, David R. MD [facility] ~ DOC #: [id number] cc: MD Nathaniel Suazo MD [facility] DATE OF CONSULTATION: 04/06/2021 CARDIOLOGY CONSULTATION HISTORY OF PRESENT ILLNESS: The patient is a 60-year-old white female whom I was asked to see in the hospital today after she complained of nausea and vomiting. The patient has a long history of hypertension. She presented to [facility] in January with nausea, vomiting, and diaphoresis. She was found to have inferior ST segment elevation myocardial infarction. Dr. Diehl performed emergent cardiac catheterization and Dr. Merida placed a stent in her distal right coronary artery. She was brought back a week later after starting Effient and Dr. Merida placed a stent in her LAD. Ejection fraction is 50%. She has done well since that time and has been going to cardiac rehabilitation. She notes, however, that yesterday she was at home when she felt nauseated and vomited. She felt somewhat sweaty. Her brought her to the emergency room and she is admitted for further evaluation and treatment. She denied any chest pain, shortness of breath, palpitations, syncope, or peripheral edema. She denied any abdominal pain, blood in her vomit, blood in her stool. PAST MEDICAL AND SURGICAL HISTORY: She had back surgery in December. She has had appendectomy, hysterectomy, hypertension, diabetes, hyperlipidemia. CURRENT MEDICATIONS: Include aspirin, Lipitor, losartan, metformin, metoprolol, Effient. ALLERGIES: She has no known drug allergies. FAMILY HISTORY: Negative for heart disease. SOCIAL HISTORY: She is . She and her live here in [place]. No smoking or alcohol abuse. REVIEW OF SYSTEMS: She has had no history of fever, stroke, asthma, liver disease, kidney disease, cancer, psychiatric illness, chronic [place] [address] CONSULTATION Name: GORDON MALONEY Room: [address] Darrell Rodriguez#: [id number] Admission: 04/06/21 Attend Phys: Bianca Chiang MD Discharge: 04/06/21 Date of : 58 Report #: [id number] PHYSICAL EXAMINATION: GENERAL: Revealed a middle-aged female, appeared in no distress. VITAL SIGNS: She had a blood pressure of 130/80, pulse 70. She is afebrile. HEENT: She was anicteric. Conjunctivae pink. Mucosa is moist. NECK: Veins nondistended. No carotid bruits. Neck is supple. CHEST: Clear to auscultation. CARDIAC: Regular rate and rhythm without murmurs. ABDOMEN: Soft, nontender. EXTREMITIES: Had no edema. Posterior tibial pulse 2+ bilaterally. SKIN: Cool and dry. NEUROLOGIC: Nonfocal. DIAGNOSTIC DATA: Her ECG showed a sinus rhythm, small inferior Q-waves, no ST segment changes. Her workup in the emergency room last night, she had a portable chest x-ray that showed no acute abnormality. LABORATORY WORK: Sodium 141, creatinine 0.6. Her liver function studies were normal. Her troponins were all less than 0.06. Her white blood cell count 14.5, hemoglobin 13.9. Her COVID antigen stat test was negative. Urinalysis last night, 1+ leukocytes, rare wbc's, many bacteria. IMPRESSION AND RECOMMENDATIONS: 1. Nausea and vomiting, reason unclear. No evidence of acute myocardial infarction. Possibly related to urinary tract infection. 2. History of coronary stents. Recommend stress echocardiogram. 3. Recent back surgery. 4. Glucose intolerance. The patient is on metformin. Nathaniel Lopez MD [facility] [place]/AMANDA <ELECTRONICALLY SIGNED> By: Nathaniel Lopez MD, [facility] 04/09/21 1246 0817 [id number] Lopez MD, [facility] /nt
== END 2021-04-06 16:50 | disposition home or self-care (01) ==
LOC: M.ERS 01:29 → M.2W 02:12 → M.TBA-ER 02:12 → M.2W 03:10
PROVIDERS: Emergency Medicine; ADMIT Internal Medicine; ATTEND Internal Medicine
DX: R11.2 Nausea with vomiting, unspecified (principal); Z20.822 Contact with and (suspected) exposure to COVID-19; D72.829 Elevated white blood cell count, unspecified; N39.0 Urinary tract infection, site not specified; R07.89 Other chest pain; I25.10 Atherosclerotic heart disease of native coronary artery without angina pectoris; I25.2 Old myocardial infarction; I10 Essential (primary) hypertension; E11.9 Type 2 diabetes mellitus without complications; M54.5 Low back pain; G89.29 Other chronic pain; Z79.899 Other long term (current) drug therapy

== ENCOUNTER 2021-08-05 15:29 | Observation (INO) | payer OTHER ==
[~2021-08-05] VITALS: Ht 160 cm; Wt 63.5 kg
[~2021-08-05 15:29] MED LIST changes: +CEFDINIR300 MG PO
[2021-08-05 15:36] VITALS: BP 152/90
[2021-08-05] MEDS ORDERED: JARDIANCE25 MG PO (15:46)
[2021-08-05 15:54] LABS: ABSOLUTE LYMPHOCYTES 1.4 thou/uL (0.8-5.3); ABSOLUTE MONOCYTES 0.4 thou/uL (0.0-1.2); ABSOLUTE NEUTROPHILS 3.4 thou/uL (1.6-8.1); BASOPHILS 0.5 %; EOSINOPHILS 0.5 %; HEMOGLOBIN 13.8 gm/dL (12.0-15.0); LYMPHOCYTES 26.2 %; MCHC 34.4 g/dL (28.0-37.0); MCV 87.3 fL (80.0-100.0); MONOCYTES 6.9 %; NUCLEATED RBCS 0 /100WBC; PLATELET COUNT* 252 thou/uL (150-400); POLYS 65.9 %; RBC 4.59 mil/uL (4.20-5.00); RDW-CV 13.4 % (10.5-14.5); WBC 5.2 thou/uL (4.0-11.0)
[2021-08-05 16:02] LABS: CALCIUM 9.1 mg/dL (8.5-10.1)
[2021-08-05 16:04] LABS: POTASSIUM 2.6 mmol/L (3.5-5.1)
[2021-08-05 16:06] LABS: ALBUMIN 3.7 g/dL (3.4-5.0); TOTAL BILIRUBIN 0.5 mg/dL (<0.1-1.0); TOTAL PROTEIN 7.8 g/dL (6.4-8.2)
[2021-08-05 17:38] LABS: URINE BILIRUBIN NEGATIVE (Negative); URINE BLOOD NEGATIVE (Negative); URINE CLARITY CLEAR; URINE COLOR YELLOW; URINE GLUCOSE-RANDOM NEGATIVE (Negative); URINE KETONES NEGATIVE (Negative); URINE LEUKOCYTES-REFLEX NEGATIVE (Negative); URINE NITRITE-REFLEX NEGATIVE (Negative); URINE PROTEIN NEGATIVE (Negative); URINE UROBILINOGEN 0.2 E.U./dl (0.2-1.0)
[2021-08-05 20:05] VITALS: BP 158/88
[2021-08-05 20:41] VITALS: BP 158/89
[2021-08-05] MEDS ORDERED: TRAMADOL 50 MG50 MG PO (21:14)
[2021-08-05] MEDS ORDERED: ZANAFLEX4 M2 PO (21:14)
[2021-08-06 00:29] VITALS: BP 104/65
[2021-08-06 04:18] LABS: CREATININE 0.8 mg/dL (0.6-1.3); MAGNESIUM 1.5 mg/dL (1.8-2.4); POTASSIUM 3.2 mmol/L (3.5-5.1)
[2021-08-06 04:42] VITALS: BP 111/64
--- NOTE | 2021-08-06 07:23 | NUR ---
PATIENT ARRIVED ON FLOOR FROM ER FROM ABOUT 2030. PATIENT ADMISSION HISTORY AND ASSESSMENT WAS COMPLETED CHARTED. IV FLUIDS WERE STARTED AT 100 ML/HR. MAG AND POTASSIUM WERE REPLACED PER PROTOCOL. PATIENT WAS GIVEN NAUSEA MEDICINE TWICE WITH GOOD RELIEF. WILL CONTINUE TO MONITOR.
[2021-08-06 08:00] VITALS: BP 115/70
[2021-08-06 08:57] LABS: AMP/METHAMP Negative (Negative); BARBITURATES Negative (Negative); BENZODIAZEPINES Negative (Negative); COCAINE Negative (Negative); METHADONE Negative (Negative); OPIATES Negative (Negative); PCP Negative (Negative); THC Negative (Negative)
--- NOTE | 2021-08-06 11:46 | EKG ---
[place] [address] ELECTROCARDIOGRAM REPORT Name: MET HAIDERSHOSHANA Selwyn Room: [address]R.#: [id number] Admission: 08/05/21 Attend Phys: Veronica Simon MD Discharge: Date of : 58 Date of Service: 08/05/21 1536 Report #: [id number] THIS REPORT FOR: //name// [facility] ED Test Date: 2021-08-05 Test Time: 15:36:57 Pat Name: GORDON MALONEY Department: Room: [facility] Gender: F Subsorter: TDS : 1960 Requested By: Oumar Amaro Order Number: [id number] MD: Mik Merida Measurements Intervals [place] Rate: 93 P: 44 ME: 138 QRS: 30 QRSD: 87 T: 3 QT: 384 QTc: 478 Interpretive Statements Sinus rhythm Probable left atrial enlargement Abnormal inferior Q waves Borderline prolonged QT interval Baseline wander in lead(s) II,aVF Compared to ECG 04/06/2021 01:32:47 Inferior Q waves now more prominent Electronically Signed On 08-06-2021 11:46:21 CDT by Mik Merida [email or web address] <ELECTRONICALLY SIGNED> By: Mik Merida MD, [facility] 08/06/21 1146 1536 1536 Mik Merida MD, [facility] /EPI
[2021-08-06 12:00] VITALS: BP 120/70
--- NOTE | 2021-08-06 14:30 | NUR ---
Pt is A&O. Resides at home with . Independent. Pt has a walker at home that she can use if needed. No hx of HH or SNF. No home o2. Start decadron. Anticipate dc to home tomorrow. No needs anticipated.
--- NOTE | 2021-08-06 15:17 | NUR ---
ASSUMED PT CARE AT 729, PT AOX4, NO C/O CHEST PAIN BUT C/O HEADACHE TREATED W/ PRN TYLENOL. PT IN ISO FOR COVID, DOES NOT REQUIRE O2 AT THIS TIME, DOES HAVE NON-PROD COUGH, STATES SOMETIMES PHLEGM WILL COME UP THOUGH. PT WORKED W/ CARDIOLOGY TODAY AND PT CLEARED BY CARDS FOR DC. DR SINGLETON WANTS TO KEEP PT ONE MORE DAY FOR OBS. GOAL IS TO REMAIN FREE FROM CHEST PAIN.
[2021-08-06 16:00] VITALS: BP 133/68
[2021-08-06 20:00] VITALS: BP 126/60
[2021-08-07 00:06] VITALS: BP 114/55
[2021-08-07 03:30] LABS: HEMATOCRIT 31.2 % (37.0-47.0); MCH 30.4 pg (26.0-34.0); MCV 86.9 fL (80.0-100.0); MPV 7.7 fl. (7.2-11.1); RBC 3.6 mil/uL (4.20-5.00); RDW-CV 13.5 % (10.5-14.5); WBC 5.2 thou/uL (4.0-11.0)
[2021-08-07 03:33] LABS: HEMOGLOBIN 10.9 gm/dL (12.0-15.0)
[2021-08-07 03:47] VITALS: BP 111/67
[2021-08-07 04:01] LABS: ALBUMIN 2.8 g/dL (3.4-5.0); CALCIUM 7.9 mg/dL (8.5-10.1); CREATININE 0.7 mg/dL (0.6-1.3); MAGNESIUM 1.8 mg/dL (1.8-2.4); POTASSIUM 3.4 mmol/L (3.5-5.1); TOTAL BILIRUBIN 0.3 mg/dL (<0.1-1.0); TOTAL PROTEIN 6.1 g/dL (6.4-8.2)
--- NOTE | 2021-08-07 05:19 | NUR ---
PT SLEPT MOST OF SHIFT. ASSESSMENT DOCUMENTED. MEDS GIVEN PER E-MAR. IV PATENT, FLUIDS INFUSING. PAIN MEDS GIVEN PER E-MAR WITH RELIEF. ISOLATION MAINTAINED. PT ABLE TO MAKE NEEDS KNOWN. WILL CONTINUE WITH PLAN OF CARE.
[2021-08-07 09:23] LABS: MAGNESIUM 1.6 mg/dL (1.8-2.4); POTASSIUM 3.4 mmol/L (3.5-5.1)
[2021-08-07] MEDS ORDERED: DEXAMETHASONE 22 M1 PO (10:07)
[2021-08-07 10:19] VITALS: BP 139/68
[2021-08-07 11:27] VITALS: BP 139/68
--- NOTE | 2021-08-07 11:48 | NUR ---
ASSUMED PT CARE AT 0730. PT IS PLEASANTLY A&OX4. ASSESSMENT COMPLETED. MEDICATIONS ADMIMISTERED ORDERED. NEW POTASSIUM AND MAGNESIUM LEVELS RECIEVED ONE ADDITIONAL DOSE ADMINISTERED PER PROTOCOL. NEW ORDERS TO DISCHARGE PT TO HOME. ORDERS REVIEWED WITH PT AND VERBALIZES UNDERSTANDING. ALL BELONGINGS WITH PT. IV DC'D AND HEART MONITOR REMOVED. PT TRANSFERRED VIA WC TO MEET SPOUSE TO DISCHARGE AT APPROX 1135.
== END 2021-08-07 11:40 | disposition home or self-care (01) ==
LOC: M.ERS 15:29 → M.TBA-ER 18:15 → M.ORTHSURG 18:32
PROVIDERS: Internal Medicine; Physician Assistant; ADMIT Family Medicine; ATTEND Family Medicine
DX: U07.1 COVID-19 (principal); J12.82 Pneumonia due to coronavirus disease 2019; E87.6 Hypokalemia; E83.42 Hypomagnesemia; I25.10 Atherosclerotic heart disease of native coronary artery without angina pectoris; I10 Essential (primary) hypertension; E11.9 Type 2 diabetes mellitus without complications; I25.2 Old myocardial infarction; Z79.82 Long term (current) use of aspirin; Z90.710 Acquired absence of both cervix and uterus; Z90.89 Acquired absence of other organs; Z79.899 Other long term (current) drug therapy

== ENCOUNTER 2021-09-06 16:48 | Emergency (ER) | payer OTHER ==
[~2021-09-06] VITALS: Ht 160 cm; Wt 65.3 kg
[~2021-09-06 16:48] MED LIST changes: +DEXAMETHASONE 22 M1 PO; +JARDIANCE25 MG PO; +ZANAFLEX4 M2 PO
[2021-09-06 16:59] VITALS: BP 168/84
== END 2021-09-06 20:16 | disposition home or self-care (01) ==
LOC: M.ERS 16:48
DX: M25.531 Pain in right wrist (principal); M25.511 Pain in right shoulder; M54.50 Low back pain, unspecified; I10 Essential (primary) hypertension; E11.9 Type 2 diabetes mellitus without complications; Z90.710 Acquired absence of both cervix and uterus; Z90.89 Acquired absence of other organs; Z79.899 Other long term (current) drug therapy